=== PATIENT | male | born 1935 | race Caucasian/White ===

== ENCOUNTER → 2016-03-25 | Outpatient (REF) | payer MEDICARE ==
[2016-03-25 18:04] LABS: PERCENT SATURATION 61.7 % (19.7-37.4)
== END | disposition home or self-care (01) ==
LOC: M LAB REF 16:20
PROVIDERS: ATTEND Internal Medicine Medical Oncology
DX: E83.110 Hereditary hemochromatosis (principal)

== ENCOUNTER → 2016-04-01 | Outpatient (REF) | payer MEDICARE ==
[2016-04-01 18:54] LABS: PERCENT SATURATION 54.2 % (19.7-37.4)
== END | disposition home or self-care (01) ==
LOC: M LAB REF 16:53
PROVIDERS: ATTEND Internal Medicine Medical Oncology
DX: E83.110 Hereditary hemochromatosis (principal)

== ENCOUNTER → 2016-04-08 | Outpatient (REF) | payer MEDICARE ==
[2016-04-08 18:40] LABS: PERCENT SATURATION 50.6 % (19.7-37.4)
== END | disposition home or self-care (01) ==
LOC: M LAB REF 16:37
PROVIDERS: ATTEND Internal Medicine Medical Oncology
DX: E83.110 Hereditary hemochromatosis (principal)

== ENCOUNTER → 2016-04-15 | Outpatient (REF) | payer MEDICARE ==
[~2016-04-15] MED LIST: ALEV220T22 PO; FLUO20CA8 PO
[2016-04-15 19:13] LABS: PERCENT SATURATION 54.5 % (19.7-37.4)
== END | disposition home or self-care (01) ==
LOC: M LAB REF 16:25
PROVIDERS: ATTEND Internal Medicine Medical Oncology
DX: E83.110 Hereditary hemochromatosis (principal)

== ENCOUNTER → 2016-04-20 | Outpatient (CLI) | payer MEDICARE ==
[2016-04-20 11:15] LABS: MEAN CORPUSCULAR HEMOGLOBIN 30.2 pg (27.0-33.0); MEAN CORPUSCULAR VOLUME 91.5 fl (80.0-96.0); RED CELL DISTRIBUTION WIDTH 14.4 % (11.5-14.5); WHITE BLOOD COUNT 8.3 K/mm3 (4.0-10.0)
[2016-04-20 11:18] LABS: INR 1.03
[2016-04-20 11:33] LABS: ALBUMIN 3.8 GM/DL (3.2-5.2); ALBUMIN/GLOBULIN RATIO 1.19 (1.00-1.93); ALKALINE PHOSPHATASE 76 U/L (45-117); ALT/SGPT 20 U/L (12-78); ANION GAP 8 MEQ/L (8-16); AST/SGOT 19 U/L (15-37); BILIRUBIN,TOTAL 0.4 MG/DL (0.2-1.0); BLOOD UREA NITROGEN 26 MG/DL (7-18); CALCIUM LEVEL 8.4 MG/DL (8.8-10.2); CARBON DIOXIDE LEVEL 29 MEQ/L (21-32); CHLORIDE LEVEL 108 MEQ/L (98-107); CREATININE FOR GFR 1.18 MG/DL (0.70-1.30); GLOMERULAR FILTRATION RATE > 60.0 (>35); GLUCOSE, FASTING 100 MG/DL (83-110); POTASSIUM SERUM 4.3 MEQ/L (3.5-5.1); SODIUM LEVEL 145 MEQ/L (136-145)
--- NOTE | 2016-04-20 13:56 | REP ---
Chest x-ray: Three views. History: Hemochromatosis. Comparison chest x-ray is from December 11, 2009. Findings: Left hemidiaphragm is slightly elevated unchanged from the 2010 prior study. Heart is not enlarged. The lungs are otherwise well inflated and clear. The pleural angles are sharp. There are minimal degenerative changes in the thoracic spine. Pulmonary vasculature is not increased. Impression: Slightly elevated left hemidiaphragm as before. Otherwise no active disease. Signed by Roderick Aguayo MD 04/20/2016 03:17 P
--- NOTE | 2016-04-20 19:25 | ECGEPIP ---
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
== END | disposition home or self-care (01) ==
LOC: EDSTATUS 09:30 → M ADMPAT 09:31
PROVIDERS: ATTEND Orthopaedic Surgery
DX: Z01.818 Encounter for other preprocedural examination (principal); M16.12 Unilateral primary osteoarthritis, left hip; R91.8 Other nonspecific abnormal finding of lung field; R94.31 Abnormal electrocardiogram [ECG] [EKG]; Z79.899 Other long term (current) drug therapy; Z79.01 Long term (current) use of anticoagulants

== ENCOUNTER → 2016-04-22 | Outpatient (REF) | payer MEDICARE | END | disposition home or self-care (01) | LOC: M LAB REF 17:08 | PROVIDERS: ATTEND Internal Medicine Medical Oncology | DX: E83.110 Hereditary hemochromatosis (principal) ==

== ENCOUNTER 2016-05-04 05:36 | Inpatient (IN) | payer MEDICARE ==
[2016-04-20 09:57] VITALS: BP 145/80
--- NOTE | 2016-04-27 16:32 | HPE ---
DATE OF SCHEDULED ADMISSION: 05/04/2016 CHIEF COMPLAINT: Right hip pain. HISTORY OF PRESENT ILLNESS: This is a pleasant 81-year-old male with progressively worsening right hip pain and stiffness. The patient has failed to improve with conservative treatment. He has elected for surgery for his continued symptoms. He has pain with weightbearing activities and his activities of daily living. 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 He has consented for a right total hip arthroplasty by Dr. Char Blackwell. Medical optimization was performed by Dr. Rick. ALLERGIES: None. CURRENT MEDICATIONS: - fluoxetine once a day - Aleve as needed PAST MEDICAL HISTORY: Includes hemochromatosis. PAST SURGICAL HISTORY: None. SOCIAL HISTORY: This gentleman is retired. He does not smoke. Occasionally drinks alcohol. FAMILY HISTORY: Noncontributory. REVIEW OF SYSTEMS: This patient denies chest pain, heart palpitations, cough, wheezing, difficulty breathing and shortness of breath. He denies abdominal pain, nausea, vomiting, diarrhea or constipation. He denies recent upper respiratory infection or urinary tract infection symptoms. He does complain of persistent pain in his right hip and pain with weightbearing activities in his right hip. PHYSICAL EXAMINATION: General: He is a well-nourished, well-developed, in no acute distress, adult male. He walks with a moderate limp, favoring his right lower extremity. He is not using assistive devices. Vital signs: He is 68-1/2 inches tall, weighs 187 pounds with a temperature of 96.7, blood pressure 142/70, pulse of 74, respirations of 17 for a body mass index (BMI) of 28. Neck was supple without adenopathy or jugular venous distension. There were no carotid bruits appreciated upon auscultation. Lungs were clear to auscultation without rales or wheeze throughout. Heart: Regular rate and rhythm. Abdomen: Bowel sounds were present. Extremities: Examination of the hip revealed intact skin without erythema, edema or ecchymosis. He had decreased internal, external rotation on exam secondary to pain and stiffness. The limb is neurovascularly intact. LABORATORY DATA: UA showed 1+ protein, trace ketones, otherwise within normal limits with a specific gravity of 1.030. Pro-time was 13.6, INR 1.03, glucose 100, BUN 26, creatinine 1.18, sodium 145, potassium 4.3. CBC showed a red count of 4.02, hemoglobin of 12.1, hematocrit of 36.8, otherwise within normal limits. Sedimentation (sed) rate was 10. Urine culture showed no growth. Nasal and sinus culture showed normal kenneth. Chest x-ray showed no acute cardiopulmonary disease prior processes. EKG showed sinus rhythm with occasional PVCs at 70 beats per minute. IMPRESSION: Symptomatic osteoarthritis of the right hip joint. PLAN: Consented for a right total hip arthroplasty by Dr. Char Blackwell.
[~2016-05-04] VITALS: Ht 175.3 cm; Wt 88.5 kg
[2016-05-04] MEDS ORDERED: ACETAMINOPHEN 500 MG TAB PO ONE (05:45)
[2016-05-04] MEDS ORDERED: LR 1,000 ML IV SCH ×3 (05:45→10:00)
[2016-05-04] MEDS ORDERED: LIDOCAINE 2% INJ 100 MG/5 ML SDV (FOR ANES.) As Ordered ONE (06:33)
[2016-05-04] MEDS ORDERED: PROPOFOL 200 MG/20 ML VIAL As Ordered ONE ×2 (06:33→08:58)
[2016-05-04] MEDS ORDERED: ceFAZolin 1GM INJ (J0690) As Ordered ONE (07:10)
[2016-05-04] MEDS ORDERED: MIDAZOLAM INJ 2 MG/2 ML VIAL (J2250) As Ordered ONE (08:40)
[2016-05-04] MEDS: LR 1,000 ML IV SCH ×2 (09:19→17:40)
[2016-05-04] MEDS ORDERED: MORPHINE PCA 1MG/ML 100ML CADD As Ordered ONE (09:42)
[2016-05-04] MEDS ORDERED: fentaNYL 100 MCG/2 ML INJECTION (J3010) IV PRN (10:00)
[2016-05-04] MEDS ORDERED: NALOXONE INJ 0.4 MG/1 ML VIAL (J2310) IV PRN (10:00)
[2016-05-04] MEDS ORDERED: NALBUPHINE HCL 10 MG/ML AMP (J2300) IV PRN (10:00)
[2016-05-04] MEDS ORDERED: EPIDURAL/PCA KEYS XX PRN (10:00)
[2016-05-04] MEDS ORDERED: FLEET ENEMA PR PRN (10:00)
[2016-05-04] MEDS ORDERED: MORPHINE 2 MG/ML 1ML SYRINGE IV PRN ×2 (10:00→16:45)
[2016-05-04] MEDS ORDERED: ONDANSETRON 4MG/2ML VIAL (J2405) IV PRN ×2 (10:00)
[2016-05-04] MEDS ORDERED: diphenhydrAMINE INJ 50MG/ML VIAL (J1200) IV PRN (10:00)
[2016-05-04] MEDS ORDERED: MORPHINE PCA 1MG/ML 100ML CADD IV PRN (10:00)
[2016-05-04 10:33] VITALS: BP 158/72
[2016-05-04] MEDS ORDERED: ONDANSETRON 4MG/2ML VIAL (J2405) As Ordered ONE (10:40)
[2016-05-04 11:00] VITALS: BP 164/74
[2016-05-04 12:00] VITALS: BP 176/77
[2016-05-04 13:00] VITALS: BP 168/64
--- NOTE | 2016-05-04 13:04 | RO ---
DATE OF PROCEDURE: 05/04/2016 PREPROCEDURE DIAGNOSIS: Right hip osteoarthritis. POSTPROCEDURE DIAGNOSIS: Right hip osteoarthritis. PROCEDURE: Right total hip arthroplasty using a size 7 Kane standard offset, 1.5 neck with a 36 mm head and a 60 mm [place] cup with a neutral liner. Components were made by [employer]. SURGEON: Dr. Char Blackwell [employer] OF [employer] JUDGE: ANA ROSA Melo ANESTHESIA: Spinal. ESTIMATED BLOOD LOSS: 300 mL. COMPLICATIONS: None. DESCRIPTION OF PROCEDURE: Antibiotics were given intravenously. A Brock catheter was placed. He was placed in a lateral decubitus position. The Graham hip positioner right hip, uppermost. Axillary roll utilized, down leg was well padded, especially the peroneal nerve. The right hip area was then prepped and draped in the usual sterile fashion. After appropriate time out, a longitudinal incision made. Bovie cautery was used to coagulate the crossing vessels down to the tensor fascia, which was divided in line with the skin incision. I then split the gluteus meatus at the anterior one-third and posterior two-third junction. We carefully dissected down through the gluteus minimus and anterior hip capsule, and then carefully dissected off the anterior portion of the trochanter, and then we externally rotated the hip and dislocated it anteriorly. Starter reamer was placed in the piriformis fossae followed by the canal finding reamer, then the lateralizing reamer. Then we reamed up to a size 7 reamer. Then osteotomy was performed on the femoral neck and then we broached up to a size #7 and adjusted the calcar cut such that it was flush. We did use the calcar planer at one point. We then exposed the acetabulum, performed a labral excision 360 degrees and then reamed beginning at 40 mm and then got all the way up to a 58 before we started getting significant bite in the cancellous bone. Thus, I elected to use a 60 cup. The final reamer was 59. I then placed the real 60 cup and it seated nicely. I used the extramedullary jig to be sure that we set the abduction and version appropriately. The central hole eliminator was applied. We then irrigated and placed the real liner. Then placed a trial #7 broach after irrigating thoroughly the femoral canal, as we did several times throughout the operation. The trial 1.5 with a 36 ball actually fit very nicely with minimal telescoping and very good stability, flexion, internal rotation, extension and external rotation, such that I thought that this was the appropriate size components to use. All the trials were then removed. I copiously irrigated out the femoral canal and the acetabulum, placed the real +7 Kane stem and then dried the trunnion and placed a 36 mm ball and then reduced the hip. Then we irrigated thoroughly and then repaired the anterior capsule, gluteus minimus and medius back anatomically with interrupted #1 PDS sutures, irrigating between layers. We then closed the tensor fascia with a running Stratafix, irrigating between layers, and then closed the deep subdermal tissues with interrupted #2-0 PDS sutures. Skin was closed with pastora, covered by Adaptic and dry sterile bulky dressing. Mr. Salvador Potts was critical to the success of the procedure by helping to manipulate the leg, helping with soft tissue retraction, helping to close the wound, helping to position the patient, amongst many other tasks.
[2016-05-04 14:00] VITALS: BP 178/80
[2016-05-04] MEDS ORDERED: ceFAZolin 1GM INJ (J0690) IR ONE (14:12)
[2016-05-04] MEDS ORDERED: ONDANSETRON 4 MG TAB (S0181) PO PRN (16:45)
[2016-05-04] MEDS ORDERED: PERCOCET 5MG/325MG TAB PO PRN (16:45)
[2016-05-04] MEDS ORDERED: WARFARIN SOD 5 MG TAB PO SCH (17:00)
[2016-05-04] MEDS ORDERED: FLUoxetine 20 MG CAP PO ONE (20:15)
[2016-05-04 22:00] VITALS: BP 154/72
[2016-05-05] MEDS: ACETAMINOPHEN TAB 650MG DOSE (2X325MG) PO PRN ×2 (05:59→19:46)
[2016-05-05 06:00] VITALS: BP 163/73
[2016-05-05] MEDS ORDERED: MOM 30ML SUSPENSION UDC PO SCH (06:30)
[2016-05-05] MEDS: PERCOCET 5MG/325MG TAB PO PRN ×3 (06:49→22:25)
[2016-05-05 07:09] LABS: MEAN CORPUSCULAR HGB CONC 33.5 g/dl (32.0-36.5); MEAN CORPUSCULAR VOLUME 92.7 fl (80.0-96.0); RED CELL DISTRIBUTION WIDTH 12.9 % (11.5-14.5)
[2016-05-05 07:20] LABS: INR 1.44
[2016-05-05 07:23] LABS: CALCIUM LEVEL 7.8 MG/DL (8.8-10.2); CREATININE FOR GFR 1.57 MG/DL (0.70-1.30); GLOMERULAR FILTRATION RATE 45.4 (>35); POTASSIUM SERUM 4.4 MEQ/L (3.5-5.1)
[2016-05-05 09:00] VITALS: BP 168/72
[2016-05-05] MEDS: FLUoxetine 20 MG CAP PO SCH (09:21)
[2016-05-05] MEDS: MOM 30ML SUSPENSION UDC PO SCH (09:22)
[2016-05-05] MEDS: SENOKOT S TAB PO SCH ×2 (09:22→22:25)
[2016-05-05] MEDS: MIRALAX *UNIT DOSE* 17GM PACKET PO SCH (09:23)
--- NOTE | 2016-05-05 10:56 | REP ---
Clinical: Status post arthroplasty. Technique: AP and cross-table lateral views. Findings: The patient is status post right hip replacement with normal positioning and appearance to the femoral and acetabular components. Overlying postsurgical changes appreciated. Impression: Satisfactory right hip replacement radiographs. Signed by Bro Thompson MD 05/05/2016 10:48 A
[2016-05-05] MEDS: ONDANSETRON 4MG/2ML VIAL (J2405) IV PRN ×2 (11:36→16:53)
--- NOTE | 2016-05-05 12:08 | IPNPDOC ---
Subjective General Date Seen The patient was seen on 05/05/16. Subjective Chief Complaint/HPI The patient is a 81-year-old male admitted with a reason for visit of Arthritis Right Hip. Events since last encounter Medical consult for patient. s/p Right HEIDI. Feeling well. denies c/o. Constitutional: Denies: Chills, Fever, Night Sweats ENT: Denies: Dysphagia, Ear Pain, Head Aches Skin: Denies: Breakdown, Lesions, Rash Pulmonary: Denies: Cough, Dyspnea, Other Symptoms, Pleuritic Chest Pain Cardiovascular: Denies: Chest Pain, Lt Headedness, Orthopnea, Palpitations, Paroxysmal Noc. Dyspnea Gastrointestinal: Denies: Abdominal Pain, Constipation, Diarrhea, Nausea, Vomiting Genitourinary: Denies: Dysuria, Frequency, Incontinence, Retention Psych: Reports: Mood Normal, Denies: Depression, Memory Issues Objective Physical Examination General Exam: Positive: Alert, No Acute Distress Eye Exam: Positive: Conjunctiva & lids normal, EOMI, PERRLA, Negative: Sclera icteric ENT Exam: Positive: Atraumatic, Mucous membr. moist/pink, Pharynx Normal Neck Exam: Positive: Supple, Negative: JVD, thyromegaly Chest Exam: Positive: Clear to auscultation, Normal air movement Heart Exam: Positive: Normal S1, Normal S2, Rate Normal, Regular Rhythm, Negative: Murmurs, Rubs Abdomen Exam: Positive: Normal bowel sounds, Soft, Negative: Hepatospenomegaly, Tenderness Skin Exam: Positive: Nl turgor and temperature, Other skin issue (RIGHT hip dressing C/D?I), Negative: Breakdown, Rash Psych Exam: Positive: Mental status NL, Mood NL, Oriented x 3 Assessment /Plan Problems Problems: (1) Osteoarthritis of right hip Status: Chronic Problem Text: s/p right HEIDI. Ortho following. (2) Hereditary hemochromatosis Status: Chronic Problem Text: Follows with Day . Has occasional phlebotomy tx. (3) Anxiety Status: Chronic Response to Treatment: Stable Problem Text: Continue Fluoxetine 20 mg po daily. Plan/VTE VTE Prophylaxis Ordered?: Yes (Coumadin per ortho) VS, I&O, 24H, Fishbone Vital Signs/I&O Vital Signs Date Time Temp Pulse Resp B/P Pulse Ox O2 Delivery O2 Flow Rate FiO2 05/05/16 09:00 99.3 84 22 168/72 96 Room Air 05/05/16 01:00 2.0 I&O- Last 24 Hours up to 6 AM 05/05/16 06:00 Intake Total 1970 ml Output Total 800 ml Balance 1170 ml Laboratory Data 24H LABS Laboratory Tests 2 05/05/16 06:40: Anion Gap 6L, Blood Urea Nitrogen 31H, Creatinine 1.57H, Sodium Level 142, Potassium Level 4.4, Chloride Level 106, Carbon Dioxide Level 30, Calcium Level 7.8L, Glomerular Filtration Rate 45.4, Prothromb Time International Ratio 1.44, Prothrombin Time 17.6H CBC/BMP Laboratory Tests 05/05/16 06:40 Calcium Level 7.8 L, Red Blood Count 3.22 L, Mean Corpuscular Volume 92.7, Mean Corpuscular Hemoglobin 31.0, Mean Corpuscular Hemoglobin Concent 33.5, Red Cell Distribution Width 12.9 Flaca Dumont [employer] May 05, 2016 12:08
[2016-05-05 14:00] VITALS: BP 178/80
[2016-05-05] MEDS ORDERED: WARFARIN SOD 5 MG TAB PO ONE (17:00)
[2016-05-05 22:00] VITALS: BP 160/65
[2016-05-06 06:00] VITALS: BP 160/80
[2016-05-06 06:57] LABS: MEAN CORPUSCULAR HEMOGLOBIN 30.7 pg (27.0-33.0); MEAN CORPUSCULAR HGB CONC 33.2 g/dl (32.0-36.5); MEAN CORPUSCULAR VOLUME 92.2 fl (80.0-96.0); WHITE BLOOD COUNT 10.8 K/mm3 (4.0-10.0)
[2016-05-06 07:00] LABS: INR 2.12
[2016-05-06 07:08] LABS: CALCIUM LEVEL 8.2 MG/DL (8.8-10.2); CREATININE FOR GFR 1.25 MG/DL (0.70-1.30); POTASSIUM SERUM 4.2 MEQ/L (3.5-5.1)
[2016-05-06] MEDS: PERCOCET 5MG/325MG TAB PO PRN ×3 (08:00→19:45)
[2016-05-06] MEDS: MIRALAX *UNIT DOSE* 17GM PACKET PO SCH (08:00)
[2016-05-06] MEDS: FLUoxetine 20 MG CAP PO SCH (08:00)
[2016-05-06] MEDS: MOM 30ML SUSPENSION UDC PO SCH (08:00)
[2016-05-06] MEDS: SENOKOT S TAB PO SCH ×2 (08:00→19:45)
[2016-05-06] MEDS: PANTOPRAZOLE 40MG TAB (PROTONIX) PO SCH (12:32)
[2016-05-06 14:00] VITALS: BP 137/64
[2016-05-06 22:00] VITALS: BP 131/63
[2016-05-07 06:00] VITALS: BP 126/58
[2016-05-07] MEDS: PERCOCET 5MG/325MG TAB PO PRN ×4 (06:11→21:17)
[2016-05-07] MEDS ORDERED: MAGNESIUM CITRATE 300 ML BTL PO ONE (06:30)
[2016-05-07 07:17] LABS: INR 1.78
[2016-05-07 07:20] LABS: MEAN CORPUSCULAR HEMOGLOBIN 30.6 pg (27.0-33.0); MEAN CORPUSCULAR HGB CONC 33.5 g/dl (32.0-36.5); MEAN CORPUSCULAR VOLUME 91.2 fl (80.0-96.0); RED CELL DISTRIBUTION WIDTH 12.7 % (11.5-14.5); WHITE BLOOD COUNT 9.5 K/mm3 (4.0-10.0)
[2016-05-07 07:35] LABS: ANION GAP 5 MEQ/L (8-16); BLOOD UREA NITROGEN 16 MG/DL (7-18); CALCIUM LEVEL 7.9 MG/DL (8.8-10.2); CARBON DIOXIDE LEVEL 33 MEQ/L (21-32); CHLORIDE LEVEL 100 MEQ/L (98-107); CREATININE FOR GFR 1.14 MG/DL (0.70-1.30); GLOMERULAR FILTRATION RATE > 60.0 (>35); GLUCOSE, FASTING 119 MG/DL (83-110); POTASSIUM SERUM 3.9 MEQ/L (3.5-5.1); SODIUM LEVEL 138 MEQ/L (136-145)
[2016-05-07 08:23] VITALS: BP 128/60
[2016-05-07] MEDS: MIRALAX *UNIT DOSE* 17GM PACKET PO SCH (08:58)
[2016-05-07] MEDS: MOM 30ML SUSPENSION UDC PO SCH (08:58)
[2016-05-07] MEDS: SENOKOT S TAB PO SCH ×2 (08:58→21:00)
[2016-05-07] MEDS: FLUoxetine 20 MG CAP PO SCH (08:58)
[2016-05-07] MEDS: PANTOPRAZOLE 40MG TAB (PROTONIX) PO SCH (09:00)
[2016-05-07 14:00] VITALS: BP 152/67
[2016-05-07] MEDS ORDERED: WARFARIN SOD 5 MG TAB PO ONE (17:00)
[2016-05-07 22:00] VITALS: BP 125/58
[2016-05-08 06:00] VITALS: BP 132/63
[2016-05-08] MEDS: PERCOCET 5MG/325MG TAB PO PRN (06:22)
[2016-05-08 06:41] LABS: INR 1.79
[2016-05-08] MEDS ORDERED: PERC5TAB6 PO (07:02)
[2016-05-08] MEDS ORDERED: PANT40TA2 PO (08:05)
[2016-05-08] MEDS ORDERED: FLUO20CA9 PO (08:05)
[2016-05-08] MEDS ORDERED: SENN1TAB2 PO (08:05)
[2016-05-08] MEDS ORDERED: MILKSUS PO (08:05)
[2016-05-08] MEDS ORDERED: COUM7.5T PO (08:05)
[2016-05-08] MEDS ORDERED: MAPA325T2 PO (08:05)
[2016-05-08] MEDS ORDERED: PEG1POW PO (08:05)
[2016-05-08] MEDS ORDERED: FLEEENE4 PR (08:05)
[2016-05-08] MEDS ORDERED: ONDA1TAB15 PO (08:05)
[2016-05-08] MEDS ORDERED: PERCOCET PO (08:05)
[2016-05-08 08:30] VITALS: BP 169/72
[2016-05-08] MEDS: MOM 30ML SUSPENSION UDC PO SCH (09:00)
[2016-05-08] MEDS: SENOKOT S TAB PO SCH (09:39)
[2016-05-08] MEDS: MIRALAX *UNIT DOSE* 17GM PACKET PO SCH (09:39)
[2016-05-08] MEDS: PANTOPRAZOLE 40MG TAB (PROTONIX) PO SCH (09:40)
[2016-05-08] MEDS: FLUoxetine 20 MG CAP PO SCH (09:40)
[2016-05-08] MEDS ORDERED: PREVNAR 13 VACCINE SYRINGE (CPT CODE:90670) IM ONE (10:00)
[2016-05-08] MEDS ORDERED: PNEUMOCOCCAL VACCINE 0.5ML SYRINGE(90732) PNEUMOVAX 23 IM ONE (10:00)
[2016-05-08] MEDS ORDERED: WARFARIN SOD 7.5 MG TAB PO ONE (17:00)
--- NOTE | 2016-05-11 10:18 | DSES ---
DATE OF ADMISSION: 05/04/2016 DATE OF DISCHARGE: 05/08/2016 ADMISSION DIAGNOSIS: Right hip osteoarthritis. DISCHARGE DIAGNOSIS: Status post right total hip arthroplasty. HISTORY OF PRESENT ILLNESS: This is a pleasant elderly white male with continuing symptomatic right hip osteoarthritis. He consented for a right total hip arthroplasty per Dr. Harsh Blackwell. Medical optimization per Dr. Rick. X-rays were consistent with advanced osteoarthritis. OPERATION PERFORMED: Right total hip arthroplasty. HOSPITAL COURSE: The patient uneventfully underwent right total hip arthroplasty under spinal anesthesia and was returned to PACU comfortable. Our hospital team decided to discharge the patient on 05/08/2016 with the following instructions. Weightbearing as tolerated right lower extremity with walker. Diet is regular. Percocet as needed for pain. Coumadin and thromboembolic deterrent stockings (TEDS) times 30 days. Optifoam dressing change in four days time. Followup in the office in 12-14 days for wound check and staple removal. The patient is encouraged to contact our office sooner with increased pain, radiating leg discomfort, drainage, bleeding, fever greater than 101 or further concerns.
== END 2016-05-08 10:40 | DRG 470 ==
LOC: M OR 05:36 → M MS5PR 10:30
PROVIDERS: ADMIT Orthopaedic Surgery; ATTEND Orthopaedic Surgery
PROC: 0SR902A Replacement of Right Hip Joint with Metal on Polyethylene Synthetic Substitute, Uncemented, Open Approach (ICD-10-PCS; principal; 2016-05-04 07:30)
DX: M16.11 Unilateral primary osteoarthritis, right hip (principal); E83.110 Hereditary hemochromatosis; R26.9 Unspecified abnormalities of gait and mobility; F33.42 Major depressive disorder, recurrent, in full remission; Z79.1 Long term (current) use of non-steroidal anti-inflammatories (NSAID); Z79.899 Other long term (current) drug therapy

== ENCOUNTER → 2016-05-11 | Outpatient (REF) ==
[~2016-05-11] MED LIST changes: +COUM7.5T PO; +FLEEENE4 PR; +FLUO20CA9 PO; +MAPA325T2 PO; +MILKSUS PO; +ONDA1TAB15 PO; +PANT40TA2 PO; +PEG1POW PO; +PERC5TAB6 PO; +PERCOCET PO; +SENN1TAB2 PO
[2016-05-11 14:28] LABS: INR 3.45
== END ==
PROVIDERS: ATTEND Internal Medicine
DX: Z51.81 Encounter for therapeutic drug level monitoring (principal); Z79.01 Long term (current) use of anticoagulants

== ENCOUNTER → 2016-05-12 | Outpatient (REF) ==
[2016-05-12 10:42] LABS: MEAN CORPUSCULAR HGB CONC 31.4 g/dl (32.0-36.5); MEAN CORPUSCULAR VOLUME 92.1 fl (80.0-96.0); RED CELL DISTRIBUTION WIDTH 12.5 % (11.5-14.5)
[2016-05-12 10:51] LABS: INR 3.52
[2016-05-12 11:02] LABS: CALCIUM LEVEL 8.1 MG/DL (8.8-10.2); CREATININE FOR GFR 1.28 MG/DL (0.70-1.30); GLOMERULAR FILTRATION RATE 57.4 (>35); POTASSIUM SERUM 4.6 MEQ/L (3.5-5.1)
== END ==
PROVIDERS: ATTEND Internal Medicine
DX: Z51.81 Encounter for therapeutic drug level monitoring (principal); Z79.01 Long term (current) use of anticoagulants; I48.91 Unspecified atrial fibrillation

== ENCOUNTER → 2016-05-14 | Outpatient (REF) ==
[2016-05-14 14:22] LABS: MEAN CORPUSCULAR HEMOGLOBIN 29.9 pg (27.0-33.0); MEAN CORPUSCULAR HGB CONC 31.4 g/dl (32.0-36.5); MEAN CORPUSCULAR VOLUME 95.3 fl (80.0-96.0); RED CELL DISTRIBUTION WIDTH 12.9 % (11.5-14.5); WHITE BLOOD COUNT 11.8 K/mm3 (4.0-10.0)
== END ==
PROVIDERS: ATTEND Internal Medicine
DX: D72.829 Elevated white blood cell count, unspecified (principal)

== ENCOUNTER → 2016-05-18 | Outpatient (REF) ==
[2016-05-18 12:57] LABS: INR 3.43
== END ==
PROVIDERS: ATTEND Internal Medicine
DX: Z51.81 Encounter for therapeutic drug level monitoring (principal); Z79.01 Long term (current) use of anticoagulants

== ENCOUNTER → 2016-05-19 | Outpatient (REF) ==
[2016-05-19 12:22] LABS: INR 2.9
== END ==
PROVIDERS: ATTEND Internal Medicine
DX: Z51.81 Encounter for therapeutic drug level monitoring (principal); Z79.01 Long term (current) use of anticoagulants

== ENCOUNTER → 2016-05-22 | Outpatient (REF) ==
[2016-05-22 11:08] LABS: MEAN CORPUSCULAR HGB CONC 32.2 g/dl (32.0-36.5); MEAN CORPUSCULAR VOLUME 93.2 fl (80.0-96.0); RED CELL DISTRIBUTION WIDTH 13.1 % (11.5-14.5); WHITE BLOOD COUNT 10.9 K/mm3 (4.0-10.0)
[2016-05-22 11:25] LABS: ANION GAP 7 MEQ/L (8-16); BLOOD UREA NITROGEN 20 MG/DL (7-18); CALCIUM LEVEL 8.2 MG/DL (8.8-10.2); CARBON DIOXIDE LEVEL 29 MEQ/L (21-32); CHLORIDE LEVEL 108 MEQ/L (98-107); CREATININE FOR GFR 1.22 MG/DL (0.70-1.30); GLOMERULAR FILTRATION RATE > 60.0 (>35); GLUCOSE, FASTING 125 MG/DL (83-110); POTASSIUM SERUM 4.5 MEQ/L (3.5-5.1); SODIUM LEVEL 144 MEQ/L (136-145)
--- NOTE | 2016-05-22 13:58 | REP ---
CHEST: A single AP view of the chest is performed. There is no acute infiltrate. There is mild elevation of the left hemidiaphragm. There is mild calcification and tortuosity of the thoracic aorta. The mediastinal silhouette is otherwise unremarkable. The heart is not enlarged. There are degenerative changes of the spine. IMPRESSION: No acute infiltrate. Signed by Sanford Segura MD 05/22/2016 08:33 P
== END ==
PROVIDERS: ATTEND Internal Medicine
DX: R05 Cough (principal); R50.9 Fever, unspecified

== ENCOUNTER → 2016-05-25 | Outpatient (REF) ==
[2016-05-25 11:06] LABS: INR 1.53
== END ==
PROVIDERS: ATTEND Internal Medicine
DX: Z51.81 Encounter for therapeutic drug level monitoring (principal); Z79.01 Long term (current) use of anticoagulants; I48.91 Unspecified atrial fibrillation

== ENCOUNTER → 2016-06-04 | Outpatient (REF) | payer MEDICARE ==
[2016-06-04 15:59] LABS: MEAN CORPUSCULAR HEMOGLOBIN 30.3 pg (27.0-33.0); MEAN CORPUSCULAR HGB CONC 32.2 g/dl (32.0-36.5); MEAN CORPUSCULAR VOLUME 94.2 fl (80.0-96.0); RED CELL DISTRIBUTION WIDTH 13.3 % (11.5-14.5); WHITE BLOOD COUNT 8.3 K/mm3 (4.0-10.0)
[2016-06-04 16:04] LABS: MICROSCOPIC INDICATED? MAN YES (NO)
[2016-06-04 16:09] LABS: ALBUMIN 3.1 GM/DL (3.2-5.2); ALBUMIN/GLOBULIN RATIO 0.82 (1.00-1.93); BILIRUBIN,TOTAL 0.2 MG/DL (0.2-1.0); CALCIUM LEVEL 8.6 MG/DL (8.8-10.2); CREATININE FOR GFR 1.29 MG/DL (0.70-1.30); GLOMERULAR FILTRATION RATE 56.9 (>35); POTASSIUM SERUM 4.5 MEQ/L (3.5-5.1); TOTAL PROTEIN 6.9 GM/DL (6.4-8.2)
[2016-06-04 16:18] LABS: BACTERIA, URINE MOD AMOUNT; WBC, URINE TNTC /hpf (0-3)
[2016-06-04 16:20] LABS: SQUAMOUS EPITHELIAL CELL URINE SMALL AMOUNT /hpf (SMALL AMT)
[2016-06-04 16:22] LABS: HYALINE CAST, URINE NONE SEEN /lpf (0-1)
[2016-06-04 16:23] LABS: MICROSCOPIC EXAM PERFORMED
== END ==
LOC: M SFHCADAM 12:22
PROVIDERS: ATTEND Family Medicine
DX: R10.30 Lower abdominal pain, unspecified (principal)

== ENCOUNTER → 2016-09-08 | Outpatient (REF) | payer MEDICARE ==
[2016-09-08 18:33] LABS: FERRITIN 37 NG/ML (26-388)
== END ==
LOC: M LAB REF 16:43
PROVIDERS: ATTEND Internal Medicine Medical Oncology
DX: E83.110 Hereditary hemochromatosis (principal)

== ENCOUNTER → 2017-04-28 | Outpatient (CLI) | payer MEDICARE | LOC: M ADAMS 09:39 | DX: J20.9 Acute bronchitis, unspecified (principal) | CPT/HCPCS: 71046; 80048 ==

== ENCOUNTER → 2017-04-28 | Outpatient (REF) | payer MEDICARE ==
[2017-04-28 12:32] LABS: BASO # 0.1 10^3/uL (0.0-0.2); BASO % 0.7 % (0.0-1.0); EOS # 0.5 10^3/uL (0.0-0.50); EOS % 4.5 % (0.0-3.0); HEMATOCRIT 42.2 % (42.0-52.0); IMMATURE GRANULOCYTE % 0.2 % (0-0); LYMPH # 1.9 10^3/uL (1.5-4.5); LYMPH % 17.8 % (24.0-44.0); MEAN CORPUSCULAR HEMOGLOBIN 30.2 pg (27.0-33.0); MEAN CORPUSCULAR HGB CONC 33.2 g/dl (32.0-36.5); MEAN CORPUSCULAR VOLUME 90.9 fl (80.0-96.0); MONO # 1.1 10^3/uL (0.0-0.8); MONO % 10.8 % (0.0-5.0); PLATELET COUNT, AUTOMATED 227 10^3/uL (150-450); RED BLOOD COUNT 4.64 10^6/uL (4.30-6.10); RED CELL DISTRIBUTION WIDTH 12.7 % (11.5-14.5); WHITE BLOOD COUNT 10.6 10^3/uL (4.0-10.0)
[2017-04-28 12:42] LABS: ANION GAP 7 MEQ/L (8-16); BLOOD UREA NITROGEN 19 MG/DL (7-18); CALCIUM LEVEL 8.9 MG/DL (8.8-10.2); CARBON DIOXIDE LEVEL 31 MEQ/L (21-32); CHLORIDE LEVEL 104 MEQ/L (98-107); CREATININE FOR GFR 1.32 MG/DL (0.70-1.30); GLOMERULAR FILTRATION RATE 55.3 (>35); GLUCOSE, FASTING 81 MG/DL (70-100); POTASSIUM SERUM 4.3 MEQ/L (3.5-5.1); SODIUM LEVEL 142 MEQ/L (136-145)
== END ==
LOC: M SFHCADAM 09:32
DX: J20.9 Acute bronchitis, unspecified (principal)
CPT/HCPCS: 80048

== ENCOUNTER → 2017-10-12 | Outpatient (REF) | payer MEDICARE | LOC: M SFHCADAM 09:11 | DX: E83.110 Hereditary hemochromatosis (principal); E78.2 Mixed hyperlipidemia ==

== ENCOUNTER 2017-10-20 03:49 | Emergency (ER) | payer MEDICARE ==
[2017-10-20 05:00] LABS: BASO # 0.1 10^3/uL (0.0-0.2); BASO % 0.7 % (0.0-1.0); EOS # 0.5 10^3/uL (0.0-0.50); EOS % 6.4 % (0.0-3.0); HEMATOCRIT 41.2 % (42.0-52.0); IMMATURE GRANULOCYTE % 0.2 % (0-3.0); LYMPH % 24.2 % (24.0-44.0); MEAN CORPUSCULAR HEMOGLOBIN 30.6 pg (27.0-33.0); MONO # 0.8 10^3/uL (0.0-0.8); MONO % 9.6 % (0.0-5.0); NEUTROPHILS # 4.8 10^3/uL (1.8-7.7); NEUTROPHILS % 58.9 % (36.0-66.0); PLATELET COUNT, AUTOMATED 230 10^3/uL (150-450); RED BLOOD COUNT 4.58 10^6/uL (4.30-6.10); RED CELL DISTRIBUTION WIDTH 12.6 % (11.5-14.5); WHITE BLOOD COUNT 8.1 10^3/uL (4.0-10.0)
[2017-10-20 05:20] LABS: ALBUMIN 3.6 GM/DL (3.2-5.2); ALBUMIN/GLOBULIN RATIO 0.86 (1.00-1.93); ALKALINE PHOSPHATASE 79 U/L (45-117); ALT/SGPT 18 U/L (12-78); ANION GAP 10 MEQ/L (8-16); AST/SGOT 15 U/L (7-37); BILIRUBIN,DIRECT 0.1 MG/DL (0.0-0.2); BILIRUBIN,TOTAL 0.6 MG/DL (0.2-1.0); BLOOD UREA NITROGEN 16 MG/DL (7-18); CALCIUM LEVEL 8.7 MG/DL (8.8-10.2); CARBON DIOXIDE LEVEL 26 MEQ/L (21-32); CHLORIDE LEVEL 107 MEQ/L (98-107); CREATININE FOR GFR 1.45 MG/DL (0.70-1.30); GLOMERULAR FILTRATION RATE 49.6 (>35); GLUCOSE, FASTING 104 MG/DL (70-100); LIPASE 215 U/L (73-393); POTASSIUM SERUM 3.8 MEQ/L (3.5-5.1); SODIUM LEVEL 143 MEQ/L (136-145); TOTAL PROTEIN 7.8 GM/DL (6.4-8.2)
[2017-10-20] MEDS ORDERED: ISOVUE-370 76% 100ML VIAL (Q9967) As Ordered (05:34)
[2017-10-20] MEDS: ONDANSETRON 4MG/2ML VIAL (J2405) IV (05:55)
[2017-10-20] MEDS: MORPHINE 2 MG/ML 1ML SYRINGE (J2270) IV (05:56)
[2017-10-20 06:09] LABS: KETONE, URINE AUTO RFX NEGATIVE (NEGATIVE); LEUKOCYTE ESTERASE UR AUTO RFX NEGATIVE (NEGATIVE); NITRITE, URINE AUTO RFX NEGATIVE (NEGATIVE); RBC, URINE AUTO RFX 0 /HPF (0-3); SPECIFIC GRAVITY UR AUTO RFX 1.005 (1.002-1.035); SQUAM EPITHELIAL CELL UR AURFX 0 /HPF (0-6); WBC, URINE AUTO RFX 0 /HPF (0-3)
== END 2017-10-20 09:13 | disposition home or self-care (01) ==
LOC: M ED 03:49
DX: R10.9 Unspecified abdominal pain (principal); R19.7 Diarrhea, unspecified; K44.9 Diaphragmatic hernia without obstruction or gangrene; Z96.649 Presence of unspecified artificial hip joint; Z87.891 Personal history of nicotine dependence; K57.30 Diverticulosis of large intestine without perforation or abscess without bleeding; K56.7 Ileus, unspecified; N40.1 Benign prostatic hyperplasia with lower urinary tract symptoms; Z79.899 Other long term (current) drug therapy
CPT/HCPCS: J2405

== ENCOUNTER → 2017-11-03 | Outpatient (REF) | payer MEDICARE ==
[2017-11-03 12:43] LABS: HEMOGLOBIN 14.6 g/dl (13.5-17.5); MEAN CORPUSCULAR HEMOGLOBIN 30.8 pg (27.0-33.0); MEAN CORPUSCULAR VOLUME 90.7 fl (80.0-96.0); RED BLOOD COUNT 4.74 10^6/uL (4.30-6.10); RED CELL DISTRIBUTION WIDTH 12.7 % (11.5-14.5); WHITE BLOOD COUNT 8.4 10^3/uL (4.0-10.0)
[2017-11-03 13:12] LABS: ALBUMIN 3.8 GM/DL (3.2-5.2); ALBUMIN/GLOBULIN RATIO 0.95 (1.00-1.93); ALKALINE PHOSPHATASE 86 U/L (45-117); ALT/SGPT 16 U/L (12-78); AMYLASE 91 U/L (25-115); ANION GAP 9 MEQ/L (8-16); AST/SGOT 16 U/L (7-37); BILIRUBIN,TOTAL 0.8 MG/DL (0.2-1.0); BLOOD UREA NITROGEN 14 MG/DL (7-18); CALCIUM LEVEL 9.1 MG/DL (8.8-10.2); CARBON DIOXIDE LEVEL 26 MEQ/L (21-32); CHLORIDE LEVEL 107 MEQ/L (98-107); CREATININE FOR GFR 1.56 MG/DL (0.70-1.30); FERRITIN 133 NG/ML (26-388); GLOMERULAR FILTRATION RATE 45.6 (>35); GLUCOSE, FASTING 106 MG/DL (70-100); POTASSIUM SERUM 4.4 MEQ/L (3.5-5.1); SODIUM LEVEL 142 MEQ/L (136-145); TOTAL PROTEIN 7.8 GM/DL (6.4-8.2)
[2017-11-03 13:20] LABS: POS COUNT POS FLAG
[2017-11-04 08:06] LABS: TRANSFERRIN 170 mg/dL (200-370)
== END ==
LOC: M SFHCADAM 09:23
DX: R10.32 Left lower quadrant pain (principal); E83.110 Hereditary hemochromatosis; N17.9 Acute kidney failure, unspecified
CPT/HCPCS: 82150

== ENCOUNTER → 2017-11-03 | Outpatient (CLI) | payer MEDICARE | LOC: M ADAMS 09:27 | DX: R10.32 Left lower quadrant pain (principal); E83.10 Disorder of iron metabolism, unspecified; N17.9 Acute kidney failure, unspecified | CPT/HCPCS: 82150 ==

== ENCOUNTER 2017-11-09 11:03 | Inpatient (IN) | payer MEDICARE ==
[2017-11-09] MEDS: NS 500 ML IV (11:55)
[2017-11-09] MEDS: ONDANSETRON 4MG/2ML VIAL (J2405) IV (11:55)
[2017-11-09] MEDS: MORPHINE 2 MG/ML 1ML SYRINGE (J2270) IV ×3 (11:56→14:44)
[2017-11-09 12:03] LABS: BASO # 0.1 10^3/uL (0.0-0.2); BASO % 0.7 % (0.0-1.0); EOS # 0.3 10^3/uL (0.0-0.50); HEMATOCRIT 40.2 % (42.0-52.0); HEMOGLOBIN 13.8 g/dl (13.5-17.5); IMMATURE GRANULOCYTE % 0.2 % (0-3.0); LYMPH # 1.5 10^3/uL (1.5-4.5); MEAN CORPUSCULAR HEMOGLOBIN 30.4 pg (27.0-33.0); MEAN CORPUSCULAR HGB CONC 34.3 g/dl (32.0-36.5); MEAN CORPUSCULAR VOLUME 88.5 fl (80.0-96.0); MONO # 0.9 10^3/uL (0.0-0.8); MONO % 10.4 % (0.0-5.0); NEUTROPHILS # 5.6 10^3/uL (1.8-7.7); NEUTROPHILS % 66.7 % (36.0-66.0); PLATELET COUNT, AUTOMATED 224 10^3/uL (150-450); RED BLOOD COUNT 4.54 10^6/uL (4.30-6.10); RED CELL DISTRIBUTION WIDTH 12.6 % (11.5-14.5); WHITE BLOOD COUNT 8.4 10^3/uL (4.0-10.0)
[2017-11-09 12:22] LABS: ALBUMIN 3.7 GM/DL (3.2-5.2); ALBUMIN/GLOBULIN RATIO 0.88 (1.00-1.93); ALKALINE PHOSPHATASE 76 U/L (45-117); ALT/SGPT 17 U/L (12-78); ANION GAP 9 MEQ/L (8-16); AST/SGOT 17 U/L (7-37); BILIRUBIN,DIRECT 0.2 MG/DL (0.0-0.2); BILIRUBIN,TOTAL 0.7 MG/DL (0.2-1.0); BLOOD UREA NITROGEN 10 MG/DL (7-18); CALCIUM LEVEL 8.9 MG/DL (8.8-10.2); CARBON DIOXIDE LEVEL 25 MEQ/L (21-32); CHLORIDE LEVEL 108 MEQ/L (98-107); CREATININE FOR GFR 1.48 MG/DL (0.70-1.30); GLOMERULAR FILTRATION RATE 48.4 (>35); GLUCOSE, FASTING 110 MG/DL (70-100); LIPASE 188 U/L (73-393); POTASSIUM SERUM 4.1 MEQ/L (3.5-5.1); SODIUM LEVEL 142 MEQ/L (136-145); TOTAL PROTEIN 7.9 GM/DL (6.4-8.2)
[2017-11-09 12:23] LABS: LACTIC ACID SEPSIS PROTOCOL 2.9 MMOL/L (0.4-2.0)
[2017-11-09] MEDS ORDERED: ISOVUE-370 76% 100ML VIAL (Q9967) As Ordered (12:26)
[2017-11-09] MEDS: NS 1,000 ML IV ×2 (18:18→20:59)
[2017-11-09] MEDS: PANTOPRAZOLE 40MG INJ (PROTONIX) (C9113) IV (18:21)
[2017-11-09] MEDS: SODIUM CHLORIDE 0.9% 1000 ML IV (19:21)
[2017-11-09 20:09] LABS: KETONE, URINE AUTO RFX TRACE mg/dL (NEGATIVE); LEUKOCYTE ESTERASE UR AUTO RFX NEGATIVE (NEGATIVE); NITRITE, URINE AUTO RFX NEGATIVE (NEGATIVE); RBC, URINE AUTO RFX 1 /HPF (0-3); SPECIFIC GRAVITY UR AUTO RFX 1.034 (1.002-1.035); SQUAM EPITHELIAL CELL UR AURFX 0 /HPF (0-6); WBC, URINE AUTO RFX 0 /HPF (0-3)
[2017-11-09] MEDS: FLEET ENEMA PR (20:59)
[2017-11-09] MEDS: HEPARIN SOD (PORCINE) 5000 UNITS/ML VIAL SC (22:15)
[2017-11-09 22:49] LABS: C REACTIVE PROTEIN QUANTITATIV 0.58 MG/DL (0.00-0.30)
[2017-11-09 22:53] LABS: LACTIC ACID SEPSIS PROTOCOL 1.3 MMOL/L (0.4-2.0)
[2017-11-10] MEDS: NS 1,000 ML IV ×5 (02:04→21:42)
[2017-11-10] MEDS: ONDANSETRON 4MG/2ML VIAL (J2405) IV ×2 (02:41→18:25)
[2017-11-10] MEDS: MORPHINE 4 MG/ML 1ML VIAL/SYRINGE (J2270) IV ×5 (02:42→21:43)
[2017-11-10] MEDS: HEPARIN SOD (PORCINE) 5000 UNITS/ML VIAL SC ×3 (05:51→21:43)
[2017-11-10 06:38] LABS: BASO # 0.1 10^3/uL (0.0-0.2); BASO % 0.8 % (0.0-1.0); EOS # 0.4 10^3/uL (0.0-0.50); EOS % 4.9 % (0.0-3.0); HEMATOCRIT 35.9 % (42.0-52.0); HEMOGLOBIN 12.3 g/dl (13.5-17.5); IMMATURE GRANULOCYTE % 0.1 % (0-3.0); LYMPH # 1.9 10^3/uL (1.5-4.5); LYMPH % 25.1 % (24.0-44.0); MEAN CORPUSCULAR HEMOGLOBIN 30.6 pg (27.0-33.0); MEAN CORPUSCULAR HGB CONC 34.3 g/dl (32.0-36.5); MEAN CORPUSCULAR VOLUME 89.3 fl (80.0-96.0); MONO # 0.8 10^3/uL (0.0-0.8); NEUTROPHILS # 4.5 10^3/uL (1.8-7.7); NEUTROPHILS % 59.1 % (36.0-66.0); PLATELET COUNT, AUTOMATED 204 10^3/uL (150-450); RED BLOOD COUNT 4.02 10^6/uL (4.30-6.10); RED CELL DISTRIBUTION WIDTH 12.7 % (11.5-14.5); WHITE BLOOD COUNT 7.6 10^3/uL (4.0-10.0)
[2017-11-10 07:00] LABS: ALBUMIN 3.1 GM/DL (3.2-5.2); ALBUMIN/GLOBULIN RATIO 0.86 (1.00-1.93); ALKALINE PHOSPHATASE 68 U/L (45-117); ALT/SGPT 13 U/L (12-78); ANION GAP 11 MEQ/L (8-16); AST/SGOT 19 U/L (7-37); BILIRUBIN,TOTAL 0.6 MG/DL (0.2-1.0); BLOOD UREA NITROGEN 10 MG/DL (7-18); CALCIUM LEVEL 8.2 MG/DL (8.8-10.2); CARBON DIOXIDE LEVEL 21 MEQ/L (21-32); CHLORIDE LEVEL 113 MEQ/L (98-107); CREATININE FOR GFR 1.42 MG/DL (0.70-1.30); GLOMERULAR FILTRATION RATE 50.8 (>35); GLUCOSE, FASTING 96 MG/DL (70-100); MAGNESIUM LEVEL 1.8 MG/DL (1.8-2.4); POTASSIUM SERUM 4.2 MEQ/L (3.5-5.1); SODIUM LEVEL 145 MEQ/L (136-145); TOTAL PROTEIN 6.7 GM/DL (6.4-8.2)
[2017-11-10] MEDS: BISACODYL 10 MG SUPP PR (07:02)
[2017-11-10] MEDS: FLEET ENEMA PR (07:45)
[2017-11-10] MEDS ORDERED: LIQUID POLIBAR PLUS 105% w/v 1900ML BTL As Ordered (15:37)
[2017-11-10] MEDS: PANTOPRAZOLE 40MG INJ (PROTONIX) (C9113) IV (17:51)
[2017-11-11] MEDS: NS 1,000 ML IV (02:31)
[2017-11-11] MEDS: HEPARIN SOD (PORCINE) 5000 UNITS/ML VIAL SC ×3 (05:32→21:46)
[2017-11-11 06:44] LABS: BASO % 0.5 % (0.0-1.0); EOS # 0.4 10^3/uL (0.0-0.50); EOS % 6.5 % (0.0-3.0); HEMATOCRIT 33.4 % (42.0-52.0); HEMOGLOBIN 11.2 g/dl (13.5-17.5); IMMATURE GRANULOCYTE % 0.3 % (0-3.0); LYMPH # 1.5 10^3/uL (1.5-4.5); LYMPH % 22.6 % (24.0-44.0); MEAN CORPUSCULAR HEMOGLOBIN 30.7 pg (27.0-33.0); MEAN CORPUSCULAR HGB CONC 33.5 g/dl (32.0-36.5); MEAN CORPUSCULAR VOLUME 91.5 fl (80.0-96.0); MONO # 0.8 10^3/uL (0.0-0.8); MONO % 12.6 % (0.0-5.0); NEUTROPHILS # 3.7 10^3/uL (1.8-7.7); NEUTROPHILS % 57.5 % (36.0-66.0); PLATELET COUNT, AUTOMATED 184 10^3/uL (150-450); RED BLOOD COUNT 3.65 10^6/uL (4.30-6.10); RED CELL DISTRIBUTION WIDTH 12.9 % (11.5-14.5); WHITE BLOOD COUNT 6.5 10^3/uL (4.0-10.0)
[2017-11-11 07:03] LABS: ALBUMIN 2.9 GM/DL (3.2-5.2); ALBUMIN/GLOBULIN RATIO 0.94 (1.00-1.93); ALKALINE PHOSPHATASE 58 U/L (45-117); ALT/SGPT 16 U/L (12-78); ANION GAP 9 MEQ/L (8-16); AST/SGOT 25 U/L (7-37); BILIRUBIN,TOTAL 0.6 MG/DL (0.2-1.0); BLOOD UREA NITROGEN 9 MG/DL (7-18); CALCIUM LEVEL 7.7 MG/DL (8.8-10.2); CARBON DIOXIDE LEVEL 23 MEQ/L (21-32); CHLORIDE LEVEL 113 MEQ/L (98-107); CREATININE FOR GFR 1.14 MG/DL (0.70-1.30); GLOMERULAR FILTRATION RATE > 60.0 (>35); GLUCOSE, FASTING 71 MG/DL (70-100); MAGNESIUM LEVEL 1.7 MG/DL (1.8-2.4); POTASSIUM SERUM 3.6 MEQ/L (3.5-5.1); SODIUM LEVEL 145 MEQ/L (136-145)
[2017-11-11] MEDS: PANTOPRAZOLE 40MG INJ (PROTONIX) (C9113) IV (17:41)
[2017-11-11] MEDS: SENOKOT S TAB PO (21:46)
[2017-11-12] MEDS: HEPARIN SOD (PORCINE) 5000 UNITS/ML VIAL SC (05:25)
[2017-11-12 06:54] LABS: BASO # 0.1 10^3/uL (0.0-0.2); BASO % 0.9 % (0.0-1.0); EOS # 0.6 10^3/uL (0.0-0.50); EOS % 9.9 % (0.0-3.0); HEMOGLOBIN 10.7 g/dl (13.5-17.5); IMMATURE GRANULOCYTE % 0.2 % (0-3.0); LYMPH # 1.4 10^3/uL (1.5-4.5); LYMPH % 24.6 % (24.0-44.0); MEAN CORPUSCULAR HEMOGLOBIN 29.8 pg (27.0-33.0); MEAN CORPUSCULAR HGB CONC 33.4 g/dl (32.0-36.5); MEAN CORPUSCULAR VOLUME 89.1 fl (80.0-96.0); MONO # 0.6 10^3/uL (0.0-0.8); MONO % 11.1 % (0.0-5.0); NEUTROPHILS % 53.3 % (36.0-66.0); PLATELET COUNT, AUTOMATED 172 10^3/uL (150-450); RED BLOOD COUNT 3.59 10^6/uL (4.30-6.10); RED CELL DISTRIBUTION WIDTH 12.9 % (11.5-14.5); WHITE BLOOD COUNT 5.6 10^3/uL (4.0-10.0)
[2017-11-12 07:14] LABS: ALBUMIN 2.7 GM/DL (3.2-5.2); ALBUMIN/GLOBULIN RATIO 0.87 (1.00-1.93); ALKALINE PHOSPHATASE 56 U/L (45-117); ALT/SGPT 17 U/L (12-78); ANION GAP 9 MEQ/L (8-16); AST/SGOT 27 U/L (7-37); BILIRUBIN,TOTAL 0.5 MG/DL (0.2-1.0); BLOOD UREA NITROGEN 10 MG/DL (7-18); CALCIUM LEVEL 8.5 MG/DL (8.8-10.2); CARBON DIOXIDE LEVEL 25 MEQ/L (21-32); CHLORIDE LEVEL 113 MEQ/L (98-107); CREATININE FOR GFR 1.22 MG/DL (0.70-1.30); GLOMERULAR FILTRATION RATE > 60.0 (>35); GLUCOSE, FASTING 79 MG/DL (70-100); MAGNESIUM LEVEL 1.9 MG/DL (1.8-2.4); POTASSIUM SERUM 3.8 MEQ/L (3.5-5.1); SODIUM LEVEL 147 MEQ/L (136-145); TOTAL PROTEIN 5.8 GM/DL (6.4-8.2)
== END 2017-11-12 11:00 | disposition home or self-care (01) | DRG 392 ==
LOC: M ED 11:03 → M ED INP 16:58 → M MSPAV 19:05
DX: K58.1 Irritable bowel syndrome with constipation (principal); R45.851 Suicidal ideations; K44.9 Diaphragmatic hernia without obstruction or gangrene; E83.119 Hemochromatosis, unspecified; F41.0 Panic disorder [episodic paroxysmal anxiety]; R63.4 Abnormal weight loss; K57.30 Diverticulosis of large intestine without perforation or abscess without bleeding; N18.3 Chronic kidney disease, stage 3 (moderate); R35.0 Frequency of micturition; Z79.899 Other long term (current) drug therapy; Z96.641 Presence of right artificial hip joint

== ENCOUNTER → 2017-11-18 | Outpatient (REF) | payer MEDICARE ==
[2017-11-18 20:34] LABS: ALBUMIN 3.9 GM/DL (3.2-5.2); ALBUMIN/GLOBULIN RATIO 0.95 (1.00-1.93); ALKALINE PHOSPHATASE 78 U/L (45-117); ALT/SGPT 24 U/L (12-78); ANION GAP 10 MEQ/L (8-16); AST/SGOT 21 U/L (7-37); BILIRUBIN,TOTAL 0.5 MG/DL (0.2-1.0); BLOOD UREA NITROGEN 8 MG/DL (7-18); CALCIUM LEVEL 9.3 MG/DL (8.8-10.2); CARBON DIOXIDE LEVEL 26 MEQ/L (21-32); CHLORIDE LEVEL 105 MEQ/L (98-107); CREATININE FOR GFR 1.47 MG/DL (0.70-1.30); GLOMERULAR FILTRATION RATE 48.8 (>35); GLUCOSE, FASTING 93 MG/DL (70-100); POTASSIUM SERUM 4.5 MEQ/L (3.5-5.1); SODIUM LEVEL 141 MEQ/L (136-145)
[2017-11-18 20:40] LABS: HEMOGLOBIN 14.2 g/dl (13.5-17.5); MEAN CORPUSCULAR HEMOGLOBIN 30.3 pg (27.0-33.0); MEAN CORPUSCULAR HGB CONC 33.8 g/dl (32.0-36.5); MEAN CORPUSCULAR VOLUME 89.6 fl (80.0-96.0); PLATELET COUNT, AUTOMATED 230 10^3/uL (150-450); RED BLOOD COUNT 4.69 10^6/uL (4.30-6.10); RED CELL DISTRIBUTION WIDTH 13.2 % (11.5-14.5); WHITE BLOOD COUNT 8.7 10^3/uL (4.0-10.0)
[2017-11-18 20:45] LABS: APPEARANCE, URINE CLEAR (CLEAR); BACTERIA, URINE AUTO NEGATIVE (NEGATIVE); BILIRUBIN, URINE AUTO NEGATIVE (NEGATIVE); BLOOD, URINE BLOOD NEGATIVE (NEGATIVE); COLOR, URINE STRAW (YELLOW); GLUCOSE, URINE (UA) AUTO NEGATIVE (NEGATIVE); KETONE, URINE AUTO NEGATIVE (NEGATIVE); LEUKOCYTE ESTERASE, URINE AUTO NEGATIVE (NEGATIVE); NITRITE, URINE AUTO NEGATIVE (NEGATIVE); PROTEIN, URINE AUTO NEGATIVE (NEGATIVE); RBC, URINE AUTO 1 /HPF (0-3); SPECIFIC GRAVITY URINE AUTO 1.005 (1.002-1.035); SQUAMOUS EPITHELIAL CELL UR AU 0 /HPF (0-6); UROBILINOGEN, URINE AUTO 0.2 mg/dL (0.0-2.0); WBC, URINE AUTO 1 /HPF (0-3)
== END ==
LOC: M SFHCADAM 14:36
DX: K58.1 Irritable bowel syndrome with constipation (principal); N32.89 Other specified disorders of bladder; Z79.899 Other long term (current) drug therapy
CPT/HCPCS: 80053

== ENCOUNTER → 2018-03-08 | Outpatient (REF) | payer MEDICARE ==
[2018-03-08 20:04] LABS: HEMOGLOBIN 13.2 g/dl (13.5-17.5); MEAN CORPUSCULAR HEMOGLOBIN 30.2 pg (27.0-33.0); MEAN CORPUSCULAR VOLUME 91.5 fl (80.0-96.0); PLATELET COUNT, AUTOMATED 274 10^3/uL (150-450); RED BLOOD COUNT 4.37 10^6/uL (4.30-6.10); RED CELL DISTRIBUTION WIDTH 13.2 % (11.5-14.5); WHITE BLOOD COUNT 8.3 10^3/uL (4.0-10.0)
[2018-03-08 20:05] LABS: ALBUMIN 3.7 GM/DL (3.2-5.2); ALBUMIN/GLOBULIN RATIO 1.09 (1.00-1.93); ALKALINE PHOSPHATASE 63 U/L (45-117); ALT/SGPT 25 U/L (12-78); ANION GAP 6 MEQ/L (8-16); AST/SGOT 18 U/L (7-37); BILIRUBIN,TOTAL 0.4 MG/DL (0.2-1.0); BLOOD UREA NITROGEN 14 MG/DL (7-18); CARBON DIOXIDE LEVEL 30 MEQ/L (21-32); CHLORIDE LEVEL 102 MEQ/L (98-107); FERRITIN 120 NG/ML (26-388); FREE T4 1.13 NG/DL (0.76-1.46); GLOMERULAR FILTRATION RATE 47.7 (>35); GLUCOSE, FASTING 109 MG/DL (70-100); IRON (FE) 98 UG/DL (65-175); PERCENT SATURATION 44.7 % (19.7-50.0); SODIUM LEVEL 138 MEQ/L (136-145); TOTAL IRON BINDING CAPACITY 219 UG/DL (250-450); TOTAL PROTEIN 7.1 GM/DL (6.4-8.2)
== END ==
LOC: M SFHCADAM 13:42
DX: E83.110 Hereditary hemochromatosis (principal); F33.42 Major depressive disorder, recurrent, in full remission; F41.8 Other specified anxiety disorders
CPT/HCPCS: 83550

== ENCOUNTER → 2018-03-24 | Outpatient (REF) | payer MEDICARE ==
[~2018-03-24] MED LIST changes: +CEPH500C; +Docusate Sod/Senna PO; +FLUO10TA30 PO; +FLUO20CA19 PO; -FLUO20CA9 PO; +MILK120011 PO; -MILKSUS PO; -ONDA1TAB15 PO; +ONDA4TAB5 PO; -PANT40TA2 PO; +PANT40TA3 PO; +PERC5TAB12 PO; -PERC5TAB6 PO; +POLY1POW38; +PROBCAP14 PO
== END ==
LOC: M SFHCPLAZ 12:06
PROVIDERS: ATTEND Dermatology
DX: L43.8 Other lichen planus (principal)

== ENCOUNTER → 2019-04-13 | Outpatient (REF) | payer MEDICARE ==
[~2019-04-13] MED LIST changes: +FLUO20CA20 PO; -FLUO20CA8 PO; +ONDA-83 PO; -ONDA4TAB5 PO; +SENN-53 PO; -SENN1TAB2 PO
[2019-04-13 16:25] LABS: HEMATOCRIT 44.8 % (42.0-52.0); HEMOGLOBIN 13.9 g/dl (13.5-17.5); MEAN CORPUSCULAR HEMOGLOBIN 29.7 pg (27.0-33.0); MEAN CORPUSCULAR VOLUME 95.7 fl (80.0-96.0); PLATELET COUNT, AUTOMATED 228 10^3/uL (150-450); RED BLOOD COUNT 4.68 10^6/uL (4.30-6.10); WHITE BLOOD COUNT 8.6 10^3/uL (4.0-10.0)
[2019-04-13 16:59] LABS: ALBUMIN 3.7 GM/DL (3.2-5.2); BILIRUBIN,TOTAL 0.4 MG/DL (0.2-1.0); CALCIUM LEVEL 8.6 MG/DL (8.8-10.2); CREATININE FOR GFR 1.37 MG/DL (0.70-1.30); GLOMERULAR FILTRATION RATE 52.7 (>35); POTASSIUM SERUM 4.6 MEQ/L (3.5-5.1); TOTAL PROTEIN 7.3 GM/DL (6.4-8.2)
== END ==
LOC: M SFHCADAM 11:51
PROVIDERS: ATTEND Family Medicine
DX: E83.110 Hereditary hemochromatosis (principal); E78.5 Hyperlipidemia, unspecified

== ENCOUNTER → 2019-05-22 | Outpatient (REF) | payer MEDICARE ==
[~2019-05-22] MED LIST changes: -FLUO20CA19 PO; +FLUO20CA22 PO
== END ==
LOC: M LAB REF 17:21
PROVIDERS: ATTEND Dermatology
DX: L73.8 Other specified follicular disorders (principal)

== ENCOUNTER → 2019-10-02 | Outpatient (REF) | payer MEDICARE ==
[~2019-10-02] MED LIST changes: -COUM7.5T PO; +COUM7.5T6 PO; -MAPA325T2 PO; +MAPA325T8 PO; +PANT40TA29 PO; -PANT40TA3 PO
== END ==
LOC: M LAB REF 19:02
PROVIDERS: ATTEND Dermatology
DX: D23.71 Other benign neoplasm of skin of right lower limb, including hip (principal)

== ENCOUNTER → 2019-11-14 | Outpatient (REF) | payer MEDICARE | LOC: M LAB REF 08:30 | PROVIDERS: ATTEND Dermatology | DX: L57.0 Actinic keratosis (principal); L57.8 Other skin changes due to chronic exposure to nonionizing radiation ==

== ENCOUNTER → 2020-05-20 | Outpatient (REF) | payer MEDICARE ==
[~2020-05-20] MED LIST changes: -PEG1POW PO; +POLY17PO18 PO
== END ==
LOC: M LAB REF 13:55
PROVIDERS: ATTEND Dermatology
DX: C44.41 Basal cell carcinoma of skin of scalp and neck (principal); L57.0 Actinic keratosis; L57.8 Other skin changes due to chronic exposure to nonionizing radiation

== ENCOUNTER → 2021-04-04 | Outpatient (REF) | payer MEDICARE ==
[~2021-04-04] MED LIST changes: +FLUO-96 PO; -FLUO20CA20 PO
[2021-04-04 13:53] LABS: HEMATOCRIT 42.1 % (42.0-52.0); HEMOGLOBIN 13.8 g/dl (13.5-17.5); MEAN CORPUSCULAR HEMOGLOBIN 30.6 pg (27.0-33.0); MEAN CORPUSCULAR HGB CONC 32.8 g/dl (32.0-36.5); MEAN CORPUSCULAR VOLUME 93.3 fl (80.0-96.0); PLATELET COUNT, AUTOMATED 255 10^3/uL (150-450); RED BLOOD COUNT 4.51 10^6/uL (4.30-6.10); WHITE BLOOD COUNT 7.4 10^3/uL (4.0-10.0)
[2021-04-04 14:33] LABS: ALBUMIN 3.5 GM/DL (3.2-5.2); BILIRUBIN,TOTAL 0.4 MG/DL (0.2-1.0); CALCIUM LEVEL 8.9 MG/DL (8.8-10.2); CHOLESTEROL RISK RATIO 5.085 (<5); CREATININE FOR GFR 1.48 MG/DL (0.70-1.30); FREE T4 1.03 NG/DL (0.76-1.46); PERCENT SATURATION 64.3 % (19.7-50.0); THYROID STIMULATING HORMONE 2.5 uIU/ML (0.358-3.740); TOTAL PROTEIN 7.1 GM/DL (6.4-8.2)
== END ==
LOC: M SFHCADAM 09:42
PROVIDERS: ATTEND Family Medicine
DX: E78.5 Hyperlipidemia, unspecified (principal); F43.22 Adjustment disorder with anxiety; E83.110 Hereditary hemochromatosis; R06.00 Dyspnea, unspecified

== ENCOUNTER → 2021-07-01 | Outpatient (REF) | payer MEDICARE ==
[2021-07-01 16:31] LABS: HEMATOCRIT 42.3 % (42.0-52.0); HEMOGLOBIN 14.2 g/dl (13.5-17.5); MEAN CORPUSCULAR HGB CONC 33.6 g/dl (32.0-36.5); MEAN CORPUSCULAR VOLUME 92.4 fl (80.0-96.0); PLATELET COUNT, AUTOMATED 256 10^3/uL (150-450); RED BLOOD COUNT 4.58 10^6/uL (4.30-6.10); WHITE BLOOD COUNT 7.9 10^3/uL (4.0-10.0)
[2021-07-01 16:53] LABS: ALBUMIN 3.6 GM/DL (3.2-5.2); BILIRUBIN,TOTAL 0.4 MG/DL (0.2-1.0); CALCIUM LEVEL 8.8 MG/DL (8.8-10.2); CREATININE FOR GFR 1.52 MG/DL (0.70-1.30); GLOMERULAR FILTRATION RATE 46.5 (>35); POTASSIUM SERUM 4.5 MEQ/L (3.5-5.1); TOTAL PROTEIN 7.4 GM/DL (6.4-8.2)
== END ==
LOC: M SFHCADAM 14:56
PROVIDERS: ATTEND Family Medicine
DX: R06.00 Dyspnea, unspecified (principal)

== ENCOUNTER → 2021-07-01 | Outpatient (CLI) | payer MEDICARE | LOC: M ADAMS 14:59 | PROVIDERS: ATTEND Family Medicine | DX: I51.7 Cardiomegaly (principal); R06.00 Dyspnea, unspecified ==

== ENCOUNTER → 2021-09-23 | Outpatient (REF) | payer MEDICARE ==
[2021-09-23 12:59] LABS: HEMATOCRIT 43.4 % (42.0-52.0); HEMOGLOBIN 14.2 g/dl (13.5-17.5); MEAN CORPUSCULAR HEMOGLOBIN 30.3 pg (27.0-33.0); MEAN CORPUSCULAR HGB CONC 32.7 g/dl (32.0-36.5); MEAN CORPUSCULAR VOLUME 92.5 fl (80.0-96.0); PLATELET COUNT, AUTOMATED 235 10^3/uL (150-450); RED BLOOD COUNT 4.69 10^6/uL (4.30-6.10); WHITE BLOOD COUNT 8.6 10^3/uL (4.0-10.0)
[2021-09-23 13:37] LABS: ALBUMIN 3.6 GM/DL (3.2-5.2); BILIRUBIN,TOTAL 0.5 MG/DL (0.2-1.0); CHOLESTEROL RISK RATIO 5.363 (<5); CREATININE FOR GFR 1.53 MG/DL (0.70-1.30); GLOMERULAR FILTRATION RATE 46.2 (>35); POTASSIUM SERUM 4.2 MEQ/L (3.5-5.1); TOTAL PROTEIN 7.3 GM/DL (6.4-8.2)
== END ==
LOC: M SFHCADAM 11:19
PROVIDERS: ATTEND Family Medicine
DX: E83.110 Hereditary hemochromatosis (principal); E78.5 Hyperlipidemia, unspecified

== ENCOUNTER → 2022-04-01 | Outpatient (REF) | payer MEDICARE ==
[2022-04-01 13:24] LABS: HEMATOCRIT 41.7 % (42.0-52.0); HEMOGLOBIN 13.4 g/dl (13.5-17.5); MEAN CORPUSCULAR HEMOGLOBIN 30.7 pg (27.0-33.0); MEAN CORPUSCULAR HGB CONC 32.1 g/dl (32.0-36.5); MEAN CORPUSCULAR VOLUME 95.6 fl (80.0-96.0); PLATELET COUNT, AUTOMATED 217 10^3/uL (150-450); RED BLOOD COUNT 4.36 10^6/uL (4.30-6.10); WHITE BLOOD COUNT 7.5 10^3/uL (4.0-10.0)
[2022-04-01 13:52] LABS: FERRITIN 132.2 NG/ML (10.5-307.3)
[2022-04-01 13:53] LABS: ALBUMIN 3.4 G/DL (3.2-5.2); BILIRUBIN,TOTAL 0.4 MG/DL (0.3-1.2); CALCIUM LEVEL 8.8 MG/DL (8.3-10.6); CHOLESTEROL RISK RATIO 5.9 (<5); CREATININE FOR GFR 1.47 MG/DL (0.70-1.30); FREE T4 0.96 NG/DL (0.89-1.76); GLOMERULAR FILTRATION RATE 48.2 (>35); HDL CHOLESTEROL 28.3 MG/DL (>40); LDL CHOLESTEROL 115.5 MG/DL (<100); PERCENT SATURATION 56.8 % (19.7-50.0); POTASSIUM SERUM 4.7 MMOL/L (3.5-5.1); THYROID STIMULATING HORMONE 3.16 uIU/ML (0.55-4.78); TOTAL PROTEIN 6.7 G/DL (5.7-8.2)
== END ==
LOC: M SFHCADAM 10:13
PROVIDERS: ATTEND Family Medicine
DX: E83.110 Hereditary hemochromatosis (principal); E78.5 Hyperlipidemia, unspecified; Z13.1 Encounter for screening for diabetes mellitus

== ENCOUNTER → 2022-05-06 | Outpatient (CLI) | payer MEDICARE ==
[~2022-05-06] MED LIST changes: +BUSP10TA; +MELA3TAB30 PO; +MIRT-11; +VALERIAN PO
== END ==
LOC: M CARPUL 09:39
PROVIDERS: ATTEND Family Medicine
DX: R06.09 Other forms of dyspnea (principal); E83.09 Other disorders of copper metabolism

== ENCOUNTER → 2022-12-03 | Outpatient (REF) | payer MEDICARE | LOC: M SFHCDERM 13:53 | PROVIDERS: ATTEND Physician Assistant | DX: L08.9 Local infection of the skin and subcutaneous tissue, unspecified (principal) ==

== ENCOUNTER → 2022-12-24 | Outpatient (CLI) | payer MEDICARE | LOC: M ADAMS 13:01 | PROVIDERS: ATTEND Family Medicine | DX: D89.2 Hypergammaglobulinemia, unspecified (principal) ==

== ENCOUNTER → 2023-01-29 | Outpatient (CLI) | payer MEDICARE | LOC: M ADAMS 14:12 | PROVIDERS: ATTEND Family Medicine | DX: M25.551 Pain in right hip (principal); Z96.641 Presence of right artificial hip joint ==

== ENCOUNTER → 2023-04-23 | Outpatient (REF) | payer MEDICARE ==
[2023-04-23 13:39] LABS: HEMATOCRIT 42.4 % (42.0-52.0); HEMOGLOBIN 13.6 g/dl (13.5-17.5); MEAN CORPUSCULAR HGB CONC 32.1 g/dl (32.0-36.5); MEAN CORPUSCULAR VOLUME 96.6 fl (80.0-96.0); PLATELET COUNT, AUTOMATED 205 10^3/uL (150-450); RED BLOOD COUNT 4.39 10^6/uL (4.30-6.10); WHITE BLOOD COUNT 7.3 10^3/uL (4.0-10.0)
[2023-04-23 13:49] LABS: ALBUMIN 3.4 G/DL (3.2-5.2); BILIRUBIN,TOTAL 0.4 MG/DL (0.3-1.2); CHOLESTEROL RISK RATIO 4.92 (<5); CREATININE FOR GFR 1.49 MG/DL (0.70-1.30); FERRITIN 162.3 NG/ML (10.5-307.3); GLOMERULAR FILTRATION RATE 47.4 (>35); HDL CHOLESTEROL 31.3 MG/DL (>40); LDL CHOLESTEROL 98.1 MG/DL (<100); NON-HDL-C 122.7 MG/DL; POTASSIUM SERUM 4.3 MMOL/L (3.5-5.1); TOTAL PROTEIN 7.5 G/DL (5.7-8.2)
[2023-04-23 13:50] LABS: THYROID STIMULATING HORMONE 2.728 uIU/ML (0.55-4.78); TOTAL 25(OH) VITAMIN D 25.2 NG/ML (20.0-100.0)
[2023-04-23 13:51] LABS: FREE T4 1.02 NG/DL (0.89-1.76)
[2023-04-23 13:57] LABS: FOLATE 5.67 NG/ML (>5.4)
== END ==
LOC: M SFHCADAM 10:01
PROVIDERS: ATTEND Family Medicine
DX: E83.110 Hereditary hemochromatosis (principal); E78.5 Hyperlipidemia, unspecified; N18.31 Chronic kidney disease, stage 3a; G62.9 Polyneuropathy, unspecified

== ENCOUNTER → 2024-05-02 | Outpatient (REF) | payer MEDICARE ==
[~2024-05-02] MED LIST changes: +FLUO-365 PO; -FLUO20CA22 PO
[2024-05-02 18:11] LABS: ALBUMIN 3.5 G/DL (3.2-5.2); BILIRUBIN,TOTAL 0.4 MG/DL (0.3-1.2); CALCIUM LEVEL 9.1 MG/DL (8.3-10.6); CHOLESTEROL RISK RATIO 5.15 (<5); CREATININE FOR GFR 1.34 MG/DL (0.70-1.30); GLOMERULAR FILTRATION RATE 53.4 (>35); HDL CHOLESTEROL 31.8 MG/DL (>40); LDL CHOLESTEROL 103.4 MG/DL (<100); NON-HDL-C 132.2 MG/DL; PERCENT SATURATION 58.2 % (19.7-50.0); POTASSIUM SERUM 4.8 MMOL/L (3.5-5.1); TOTAL PROTEIN 7.2 G/DL (5.7-8.2)
[2024-05-02 18:12] LABS: FERRITIN 137.4 NG/ML (10.5-307.3)
[2024-05-02 18:14] LABS: HEMATOCRIT 41.6 % (42.0-52.0); HEMOGLOBIN 13.4 g/dl (13.5-17.5); MEAN CORPUSCULAR HEMOGLOBIN 30.4 pg (27.0-33.0); MEAN CORPUSCULAR HGB CONC 32.2 g/dl (32.0-36.5); MEAN CORPUSCULAR VOLUME 94.3 fl (80.0-96.0); PLATELET COUNT, AUTOMATED 210 10^3/uL (150-450); RED BLOOD COUNT 4.41 10^6/uL (4.30-6.10); WHITE BLOOD COUNT 7.6 10^3/uL (4.0-10.0)
[2024-05-02 18:45] LABS: HEMOGLOBIN A1c 5.3 % (4.0-6.0)
== END ==
LOC: M SFHCADAM 14:18
PROVIDERS: ATTEND Family Medicine
DX: E83.110 Hereditary hemochromatosis (principal); E78.5 Hyperlipidemia, unspecified; G62.9 Polyneuropathy, unspecified

== ENCOUNTER → 2024-11-14 | Outpatient (REF) | payer MEDICARE ==
[~2024-11-14] MED LIST changes: -FLUO10TA30 PO; +FLUO1TAB2 PO
[2024-11-14 19:18] LABS: PLATELET COUNT, AUTOMATED 202 10^3/uL (150-450)
== END ==
LOC: M SFHCADAM 12:11
PROVIDERS: ATTEND Family Medicine
DX: E83.110 Hereditary hemochromatosis (principal)

== ENCOUNTER → 2024-11-14 | Outpatient (CLI) | payer MEDICARE | LOC: M ADAMS 13:11 | PROVIDERS: ATTEND Family Medicine | DX: R09.89 Other specified symptoms and signs involving the circulatory and respiratory systems (principal) ==